=== PATIENT | female | born 1985 | race Caucasian/White ===

== ENCOUNTER 2023-07-06 08:21 | Outpatient (AMB) | payer BC, SELFPAY ==
--- NOTE | 2023-07-06 08:30 | MHC.OFFVIS ---
Intake Vital Signs 07/06/23 08:38 Height 5 ft 4 in Weight 265 lb 4 oz BMI 45.5 BP 124/80 Blood Pressure Location Rt brachial Position Sitting Pulse 85 Pulse Source Pulse Oximeter Pulse Oximetry (%) 99 Oxygen Delivery Method Room Air Intake Visit Reasons: ENP-Apnea- Confirmed Intake Note: Patient presents for sleep Apnea. Very tired all the time and can't sleep at night. Loud snoring and gasp for air. Falls asleep during the day. Morning headaches. Allergies dulaglutide [[facility]] Allergy (Severe, Verified 07/06/23 08:34) Itching Medication List - Last Reconciled 07/06/23 by Zachery Yepez CNP acetaminophen 650 mg PO QID PRN benzonatate 100 mg PO BID PRN empagliflozin (Jardiance) 10 mg PO DAILY labetalol 200 mg PO BID labetalol 400 mg PO BID levocetirizine 5 mg PO DAILY omeprazole 20 mg PO DAILY HPI HPI Comments History of Present Illness Details 37 y/o female patient presents for new in-person visit for sleep consultation. Pt reports difficulty falling asleep and staying sleep. She gained more than 60 over the last year after giving her 2nd . She snores and wakes up more than 5 times at night. She wakes herself up with gasping for air. Pt having non refreshing sleep and daytime sleepiness. Sleep questionnaire: Have you ever been diagnosed with a sleep disorder? No. Have you ever had a sleep study in the past? No. Have you ever been treated for a sleep disorder? No. Do you take medications for a sleep disorder? No. Do you snore? Yes. Do you wake up gasping at night? Yes. Do you have episodes of apneas? Yes. If yes, are they witnessed? Yes, by her . Do you have episodes of nocturnal chest pain or dyspnea? No. Do you have difficulty initiating sleep? Yes. Do you have difficulty maintaining sleep? Yes, about 5 times at night. Do you wake up tired? Yes. Do you have headaches upon awakening? Yes, sometimes. Do you wake up with dry mouth or throat? Yes. Do you have GERD? Yes. Do you have nocturia? Yes. Do you have nocturnal leg cramps? On occasion. Do you have symptoms of restless legs? No. Do you act out your dreams? No. Sleep hygiene questionnaire: What is your usual sleep routine? Usual bedtime is at 10 pm; Usual wake up time is at 6:10 am. Do you take naps? Yes. Is your sleep environment cool, dark, and quiet? Yes. Do you exercise? No. Do you take caffeine or other stimulants? Coffee in the morning. Do you use electronics in bed? Yes. What is your work schedule? No. Hypersomnolence questionnaire: Do you have daytime tiredness or fatigue? Yes. Do you easily fall asleep when inactive? Yes. Have you ever had episodes of sudden weakness? No. Have you ever had episodes of sudden weakness associated with strong emotions? No. [facility] [place] Medical History (Updated 07/06/23 @ 09:01 by Zachery Yepez CNP) delivery delivered Surgical History History of esophagogastroduodenoscopy (EGD) Family History (Updated 07/06/23 @ 08:45 by Luci Velarde CMA) Mother Hypertension Multiple sclerosis Father Diabetes High cholesterol Hypertension Social History (Updated 07/06/23 @ 08:37 by Luci Velarde CMA) Alcohol intake: never Patient Tobacco Use Status: Former Tobacco user Review of Systems Const All systems reviewed & are unremarkable except as noted in HPI and below Physical Exam Vital Signs: Last Vital Signs Pulse 85 07/06/23 08:38 BP 124/80 07/06/23 08:38 Pulse Ox 99 07/06/23 08:38 Oxygen Delivery Method Room Air 07/06/23 08:38 BMI result Body Mass Index 45.5 Const General: cooperative Nutritional Appearance: obese Orientation/consciousness: patient oriented x3 Neck Neck: Yes full ROM and Yes supple Resp Effort & Inspection: normal respiratory effort and able to speak in complete sentences Neuro General: patient oriented x3, gait normal and moves all extremities Cranial nerves: Yes CN's II-XII intact bilaterally Cognition (Neuro): normal cognition Gait exam (Neuro): Normal gait present Motor exam (neuro): 5/5 motor strength present throughout Psych Appearance: grossly normal Mental Status: mental status grossly normal Speech and movement: Normal speech and movement present Affect: normal affect Attitude: cooperative Assessment & Plan Assessment & Plan (1) Snoring: Code(s): R06.83 - Snoring (2) Daytime sleepiness: Code(s): R40.0 - Somnolence (3) Obesity, Class III, BMI 40-49.9 (morbid obesity): Code(s): E66.01 - Morbid (severe) obesity due to excess calories Plan Pt is advised to undergo in lab sleep study to assess for sleep apnea. Will f/u with pt after study to discuss results and appropriate treatment options. Sleep hygiene education provided. Limit electronic use before bedtime. Wt reduction advised. Pt to call with any worsening concerns or questions. Orders: Orders RT PSG in-lab sleep study Today E11.9 - Type 2 diabetes mellitus without complications, E66.01 - Morbid (severe) obesity due to excess calories, I10 - Essential (primary) hypertension, R06.83 - Snoring, R40.0 - Somnolence Coding Level of Care Code New Pt Level 3 ([id number]) Diagnoses Snoring R06.83 Daytime sleepiness R40.0 Obesity, Class III, BMI 40-49.9 (morbid obesity) E66.01
[2023-07-06 08:38] VITALS: BP 124/80; PULSE 85; O2SAT 99; BMI 45.5
== END 2023-07-06 09:05 | disposition home or self-care (01) ==
PROVIDERS: Visit Provider Nurse Practitioner Family
DX: R06.83 Snoring (principal); R40.0 Somnolence; E66.01 Morbid (severe) obesity due to excess calories
CPT/HCPCS: 99203

== ENCOUNTER → 2023-07-06 08:21 | Outpatient (BNVA) | payer BC, SELFPAY | PROVIDERS: Visit Provider Nurse Practitioner Family ==

== ENCOUNTER → 2023-07-13 20:30 | Outpatient (REF) | payer BC, SELFPAY | LOC: HO.SL 20:30 | PROVIDERS: PCP Nurse Practitioner Family; Visit Provider Nurse Practitioner Family | DX: G47.33 Obstructive sleep apnea (adult) (pediatric) (principal); R40.0 Somnolence; R06.83 Snoring | CPT/HCPCS: 95810 ==

== ENCOUNTER → 2023-07-14 01:10 | Outpatient (BNV) | payer BC, SELFPAY | PROVIDERS: PCP Nurse Practitioner Family; Visit Provider Psychiatry & Neurology Neurology | DX: G47.33 Obstructive sleep apnea (adult) (pediatric) (principal) | CPT/HCPCS: 95810 ==